=== PATIENT | female | born 1975 | race Caucasian/White ===

== ENCOUNTER 2019-11-05 13:54 | Emergency (ER) | payer OTHER ==
[~2019-11-05] VITALS: Ht 157.4 cm; Wt 68.0 kg
[~2019-11-05 13:54] MED LIST: ATENOLOL25 MG PO; CIPROFLOXACIN500 MG PO; CLARITIN10 MG PO; CYMBALTA60 MG PO; DAYPRO600 M1 PO; EPIPEN 2-PAK1 MG/ML MR; FLAGYL500 MG PO; Fioricet 325 MG1 TAB PO; LEVOTHYROXIN0.025 MG PO; LIDEX 0.05% CRE15 GM T; LIDEX0.05% T; MEDROL DOSEPAK4 MG PO; OMEPRAZOLE40 MG PO; PERCOCET 325 MG1 TA2 PO; PREDNISONE10 MG PO; XANAX0.25 MG PO
[2019-11-05 13:55] VITALS: BP 170/110
[2019-11-05] MEDS ORDERED: ZYRTEC10 MG PO (15:36)
[2019-11-05] MEDS ORDERED: NAPROSYN500 MG PO (15:36)
== END 2019-11-05 15:43 | disposition home or self-care (01) ==
LOC: ED 13:54
DX: S30.0XXA Contusion of lower back and pelvis, initial encounter (principal); Z91.09 Other allergy status, other than to drugs and biological substances; Z79.899 Other long term (current) drug therapy; Z90.710 Acquired absence of both cervix and uterus; X58.XXXA Exposure to other specified factors, initial encounter; Y93.89 Activity, other specified; Y92.89 Other specified places as the place of occurrence of the external cause; Y99.8 Other external cause status

== ENCOUNTER 2021-06-25 12:30 | Emergency (ER) | payer SELFPAY ==
[~2021-06-25] VITALS: Ht 157.4 cm; Wt 59.0 kg
[~2021-06-25 12:30] MED LIST changes: +NAPROSYN500 MG PO; +ZYRTEC10 MG PO
[2021-06-25 12:37] VITALS: BP 137/96
[2021-06-25] MEDS ORDERED: PREDNISONE10 MG PO (12:44)
== END 2021-06-25 13:00 | disposition home or self-care (01) ==
LOC: ED 12:30
DX: L23.7 Allergic contact dermatitis due to plants, except food (principal); Z79.899 Other long term (current) drug therapy; Z90.711 Acquired absence of uterus with remaining cervical stump

== ENCOUNTER 2021-08-04 01:01 | Inpatient (IN) | payer OTHER ==
[~2021-08-04] VITALS: Ht 157.4 cm; Wt 64.0 kg
[2021-08-04] VITALS (9 sets, daily range): BP systolic 128–180; BP diastolic 85–103
[2021-08-04 03:39] LABS: HEMATOCRIT 45.5 % (37.0-47.0); MEAN CELL VOLUME 88.9 fl (81.0-99.0); MEAN CORPUSCULAR HGB 27.9 pg (27.0-31.0); MEAN CORPUSCULAR HGB CONC 31.4 g/dl (33.0-37.0); MEAN PLATELET VOLUME 9.8 fl (9.6-12.3); PLATELET COUNT AUTOMATED 360 10*3/uL (130-400); RED BLOOD COUNT 5.12 10*6/uL (4.10-5.10); RED CELL DISTRI WIDTH 15.3 % (0-14.5); WHITE BLOOD COUNT 12.7 10*3/uL (4.8-10.8)
[2021-08-04 03:55] LABS: PLATELET SUFFICIENCY NORMAL (NORMAL); TOTAL CELLS COUNTED 100 #CELLS
[2021-08-04 04:02] LABS: ALKALINE PHOSPHATASE 360 U/L (45-117); BUN 18 mg/dl (7-24); CHLORIDE 107 mmol/L (98-107); CREATININE 0.68 mg/dL (0.55-1.02); POTASSIUM 4.4 mmol/L (3.5-5.1); SGOT/AST 104 IU/L (3-35); SGPT/ALT 521 U/L (12-78); SODIUM 136 mmol/L (136-145); TOTAL PROTEIN 7.8 gm/dL (6.4-8.2)
[2021-08-05 00:07] VITALS: BP 153/113
[2021-08-05 02:02] VITALS: BP 144/91
[2021-08-05 06:07] LABS: HEP B CORE AB, IGM Negative (Negative); HEPATITIS B SURFACE AG Negative (Negative)
[2021-08-05 06:15] LABS: BASO # 0.1 10*3/uL (0.0-0.1); BASO % 0.5 % (0.0-1.0); EOS # 0.3 10*3/uL (0.0-0.4); EOS % 2.7 % (1.0-4.0); LYMPH # 3.8 10*3/uL (1.3-4.4); LYMPH % 34.3 % (27.0-41.0); MEAN CELL VOLUME 87.7 fl (81.0-99.0); MEAN CORPUSCULAR HGB 28.1 pg (27.0-31.0); MEAN PLATELET VOLUME 10.4 fl (9.6-12.3); MONO # 0.8 10*3/uL (0.1-1.0); MONO % 7.2 % (3.0-9.0); NEUT % 54.3 % (47.0-73.0); PLATELET COUNT AUTOMATED 311 10*3/uL (130-400); RED BLOOD COUNT 3.99 10*6/uL (4.10-5.10); WHITE BLOOD COUNT 11.1 10*3/uL (4.8-10.8)
[2021-08-05 06:29] LABS: CHLORIDE 109 mmol/L (98-107); SODIUM 141 mmol/L (136-145); TOTAL PROTEIN 6.5 gm/dL (6.4-8.2)
[2021-08-05 06:31] LABS: ACT PARTIAL THROMBO TIME 24.5 SECONDS (20.0-32.1); INTERNATIONAL NORM RATIO 0.9 (2.0-3.5)
[2021-08-05 06:35] LABS: ALBUMIN 2.5 gm/dl (3.1-4.5); ALKALINE PHOSPHATASE 241 U/L (45-117); BUN 11 mg/dl (7-24); CHOLESTEROL 189 mg/dL (<200); CREATININE 0.64 mg/dL (0.55-1.02); LDL CHOLESTEROL 113 mg/dL (9-159); SGOT/AST 44 IU/L (3-35); SGPT/ALT 283 U/L (12-78); TRIGLYCERIDES 195 mg/dl (<150)
[2021-08-05 07:27] LABS: VITAMIN D, 25-HYDROXY 52.2 ng/mL (30-100)
[2021-08-05 08:00] VITALS: BP 174/76
[2021-08-05 12:00] VITALS: BP 142/98
[2021-08-05 16:00] VITALS: BP 146/82
[2021-08-05 20:00] VITALS: BP 153/96
[2021-08-06] VITALS: BP 148/87
[2021-08-06 06:30] LABS: BASO # 0.1 10*3/uL (0.0-0.1); BASO % 0.9 % (0.0-1.0); EOS # 0.8 10*3/uL (0.0-0.4); EOS % 9.1 % (1.0-4.0); HEMATOCRIT 37.2 % (37.0-47.0); LYMPH # 3.9 10*3/uL (1.3-4.4); MEAN CELL VOLUME 87.9 fl (81.0-99.0); MEAN CORPUSCULAR HGB 28.4 pg (27.0-31.0); MEAN CORPUSCULAR HGB CONC 32.3 g/dl (33.0-37.0); MEAN PLATELET VOLUME 10.3 fl (9.6-12.3); MONO # 0.6 10*3/uL (0.1-1.0); MONO % 7.5 % (3.0-9.0); NEUT # 2.9 10*3/uL (2.3-7.9); NEUT % 34.5 % (47.0-73.0); PLATELET COUNT AUTOMATED 324 10*3/uL (130-400); RED BLOOD COUNT 4.23 10*6/uL (4.10-5.10); RED CELL DISTRI WIDTH 15.1 % (0-14.5); WHITE BLOOD COUNT 8.5 10*3/uL (4.8-10.8)
[2021-08-06 06:50] LABS: ALBUMIN 2.4 gm/dl (3.1-4.5); ALKALINE PHOSPHATASE 222 U/L (45-117); BUN 12 mg/dl (7-24); CHLORIDE 104 mmol/L (98-107); CREATININE 0.68 mg/dL (0.55-1.02); POTASSIUM 4.2 mmol/L (3.5-5.1); SGOT/AST 37 IU/L (3-35); SGPT/ALT 179 U/L (12-78); SODIUM 140 mmol/L (136-145); TOTAL PROTEIN 6.5 gm/dL (6.4-8.2)
[2021-08-06 08:00] VITALS: BP 163/93
[2021-08-06 12:00] VITALS: BP 144/86
[2021-08-06 16:00] VITALS: BP 132/86
[2021-08-06 20:00] VITALS: BP 146/101
[2021-08-07] VITALS: BP 142/97
[2021-08-07 06:30] LABS: ALBUMIN 2.6 gm/dl (3.1-4.5); BUN 14 mg/dl (7-24); CHLORIDE 104 mmol/L (98-107); CREATININE 0.61 mg/dL (0.55-1.02); POTASSIUM 4.1 mmol/L (3.5-5.1); SGOT/AST 41 IU/L (3-35); SGPT/ALT 139 U/L (12-78); SODIUM 138 mmol/L (136-145); TOTAL PROTEIN 6.7 gm/dL (6.4-8.2)
[2021-08-07 06:31] LABS: ALKALINE PHOSPHATASE 204 U/L (45-117)
[2021-08-07 08:00] VITALS: BP 142/97
[2021-08-07 12:00] VITALS: BP 138/89
[2021-08-07 16:00] VITALS: BP 144/90
[2021-08-07 20:00] VITALS: BP 157/72
[2021-08-08] VITALS: BP 169/114
[2021-08-08 04:00] VITALS: BP 167/89
[2021-08-08 07:55] LABS: HEPATITIS C VIRUS ANTIBODY >11.0 s/co (0.0-0.9)
[2021-08-08 08:00] VITALS: BP 135/96
[2021-08-08 08:05] LABS: BASO # 0.1 10*3/uL (0.0-0.1); BASO % 0.5 % (0.0-1.0); EOS # 0.3 10*3/uL (0.0-0.4); EOS % 1.9 % (1.0-4.0); HEMATOCRIT 36.5 % (37.0-47.0); LYMPH # 3.7 10*3/uL (1.3-4.4); LYMPH % 25.8 % (27.0-41.0); MEAN CELL VOLUME 87.5 fl (81.0-99.0); MEAN CORPUSCULAR HGB 28.1 pg (27.0-31.0); MEAN CORPUSCULAR HGB CONC 32.1 g/dl (33.0-37.0); MEAN PLATELET VOLUME 9.9 fl (9.6-12.3); MONO # 0.9 10*3/uL (0.1-1.0); MONO % 6.2 % (3.0-9.0); NEUT # 9.2 10*3/uL (2.3-7.9); NEUT % 64.4 % (47.0-73.0); PLATELET COUNT AUTOMATED 366 10*3/uL (130-400); RED BLOOD COUNT 4.17 10*6/uL (4.10-5.10); RED CELL DISTRI WIDTH 14.4 % (0-14.5); WHITE BLOOD COUNT 14.3 10*3/uL (4.8-10.8)
[2021-08-08 08:11] LABS: ALBUMIN 2.8 gm/dl (3.1-4.5); ALKALINE PHOSPHATASE 202 U/L (45-117); BUN 15 mg/dl (7-24); CHLORIDE 105 mmol/L (98-107); CREATININE 0.65 mg/dL (0.55-1.02); POTASSIUM 3.9 mmol/L (3.5-5.1); SGOT/AST 35 IU/L (3-35); SGPT/ALT 107 U/L (12-78); SODIUM 138 mmol/L (136-145)
[2021-08-08] MEDS ORDERED: AMLODIPINE BESYL5 MG PO (11:01)
[2021-08-08] MEDS ORDERED: CEPHALEXIN500 M1 PO (11:01)
[2021-08-08] MEDS ORDERED: HYDROCODONE-AC1 EAC1 PO (11:01)
[2021-08-08] MEDS ORDERED: BENADRYL ALLERG25 M5 PO (11:01)
== END 2021-08-08 11:20 | disposition home or self-care (01) | DRG 871 ==
LOC: ED 01:01 → 5E 06:31 → EDHOLD 06:31 → 5E 18:19
PROVIDERS: Emergency Medicine; Hospitalist; Internal Medicine; Registered Nurse; ADMIT Internal Medicine; ATTEND Internal Medicine
DX: A41.9 Sepsis, unspecified organism (principal); E43 Unspecified severe protein-calorie malnutrition; L03.90 Cellulitis, unspecified; L01.00 Impetigo, unspecified; D64.9 Anemia, unspecified; E87.8 Other disorders of electrolyte and fluid balance, not elsewhere classified; R73.9 Hyperglycemia, unspecified; E78.1 Pure hyperglyceridemia; B19.20 Unspecified viral hepatitis C without hepatic coma; B95.4 Other streptococcus as the cause of diseases classified elsewhere; Z90.710 Acquired absence of both cervix and uterus; Z68.25 Body mass index [BMI] 25.0-25.9, adult

== ENCOUNTER 2021-08-12 00:33 | Emergency (ER) | payer OTHER ==
[~2021-08-12] VITALS: Ht 157.4 cm; Wt 59.0 kg
[~2021-08-12 00:33] MED LIST changes: +AMLODIPINE BESYL5 MG PO; +BENADRYL ALLERG25 M5 PO; +CEPHALEXIN500 M1 PO; +HYDROCODONE-AC1 EAC1 PO
[2021-08-12 01:11] LABS: BASO # 0.1 10*3/uL (0.0-0.1); BASO % 1.1 % (0.0-1.0); EOS # 1.7 10*3/uL (0.0-0.4); EOS % 14.2 % (1.0-4.0); HEMATOCRIT 39.8 % (37.0-47.0); LYMPH # 4.2 10*3/uL (1.3-4.4); LYMPH % 35.6 % (27.0-41.0); MEAN CELL VOLUME 86.9 fl (81.0-99.0); MEAN CORPUSCULAR HGB 28.6 pg (27.0-31.0); MEAN CORPUSCULAR HGB CONC 32.9 g/dl (33.0-37.0); MEAN PLATELET VOLUME 9.5 fl (9.6-12.3); MONO # 0.8 10*3/uL (0.1-1.0); MONO % 6.4 % (3.0-9.0); NEUT # 4.9 10*3/uL (2.3-7.9); NEUT % 41.6 % (47.0-73.0); PLATELET COUNT AUTOMATED 446 10*3/uL (130-400); RED BLOOD COUNT 4.58 10*6/uL (4.10-5.10); RED CELL DISTRI WIDTH 14.6 % (0-14.5); WHITE BLOOD COUNT 11.9 10*3/uL (4.8-10.8)
[2021-08-12 01:38] LABS: ALBUMIN 3.7 gm/dl (3.1-4.5); ALKALINE PHOSPHATASE 216 U/L (45-117); BUN 22 mg/dl (7-24); CHLORIDE 107 mmol/L (98-107); CREATININE 0.87 mg/dL (0.55-1.02); POTASSIUM 4.3 mmol/L (3.5-5.1); SGOT/AST 216 IU/L (3-35); SGPT/ALT 269 U/L (12-78); SODIUM 138 mmol/L (136-145); TOTAL PROTEIN 7.8 gm/dL (6.4-8.2)
[2021-08-12 02:38] LABS: BILIRUBIN Negative (Negative); BLOOD Negative (Negative); CLARITY Clear (Clear); COLOR Yellow (Yellow); GLUCOSE Negative (Negative); KETONE Trace (Negative); LEUKO ESTERASE Negative (Negative); NITRITE Negative (Negative); SPECIFIC GRAVITY 1.025 (1.001-1.030)
[2021-08-12 02:50] LABS: URINE AMPHETAMINES > 1000 (1000ng/ml); URINE BARBITURATES < 200 (200ng/ml); URINE BENZODIAZEPINES < 200 (200ng/ml); URINE CANNABINOIDS (THC) < 50 (50ng/ml); URINE COCAINE < 300 (300ng/ml); URINE METHADONE < 300 (300ng/ml); URINE OPIATES > 300 (300ng/ml)
[2021-08-12 03:01] LABS: BACTERIA TRACE; MUCOUS 1+; URINE PHENCYCLIDINE < 25 (25ng/ml)
[2021-08-12 05:12] VITALS: BP 140/95
== END 2021-08-12 06:30 | disposition home or self-care (01) ==
LOC: ED 00:33
PROVIDERS: Internal Medicine
DX: L40.8 Other psoriasis (principal); F15.10 Other stimulant abuse, uncomplicated; R94.5 Abnormal results of liver function studies; R79.82 Elevated C-reactive protein (CRP); F17.200 Nicotine dependence, unspecified, uncomplicated; Z90.710 Acquired absence of both cervix and uterus; Z79.899 Other long term (current) drug therapy

== ENCOUNTER 2025-05-08 00:35 | Emergency (ER) | payer MEDICAID ==
[~2025-05-08] VITALS: Ht 157.4 cm; Wt 71.7 kg
[2025-05-08 00:42] VITALS: BP 160/110
[2025-05-08] MEDS ORDERED: WELLBUTRIN SR150 MG PO (00:43)
[2025-05-08] MEDS ORDERED: Pseudoephedrine Hydrochlorid 30 MG TAB PO ONE (01:20)
[2025-05-08] MEDS ORDERED: Dexamethasone Sodium Phospha 20 MG/5 ML VIAL IM ONE (01:20)
[2025-05-08] MEDS ORDERED: ALBUTEROL 8 GM INHALER INH ONE (01:20)
[2025-05-08] MEDS ORDERED: SUDOGEST30 MG PO (01:20)
[2025-05-08] MEDS ORDERED: PREDNISONE20 M1 PO (01:20)
== END 2025-05-08 01:43 | disposition home or self-care (01) ==
LOC: ED 00:35
DX: J06.9 Acute upper respiratory infection, unspecified (principal); L40.9 Psoriasis, unspecified; I10 Essential (primary) hypertension; F17.200 Nicotine dependence, unspecified, uncomplicated; Z79.899 Other long term (current) drug therapy; Z90.710 Acquired absence of both cervix and uterus